=== PATIENT | male | born 1950 | race Caucasian/White ===

== ENCOUNTER 2020-01-06 09:51 | Inpatient (IN) | payer MEDICARE ==
[2020-01-06] MEDS ORDERED: NITROGLYCERIN OINT 1 INCH/GM PACKET TOPICAL STA (10:09)
[2020-01-06] MEDS ORDERED: ASPIRIN 81 MG PO STA (10:09)
--- NOTE | 2020-01-06 10:20 | ED ---
General Adult HPI - General Chief complaint: Chest Pain Stated complaint: chest pain Time Seen by Provider: 01/06/20 09:55 Source: patient, family, RN notes reviewed, old records reviewed Mode of arrival: wheelchair Limitations: no limitations - History of Present Illness Initial comments: This is a 69-year-old male who presents emergency Department complaining of chest pain. Patient states he has diabetes hypertension high cholesterol and just quit smoking at the beginning of the month. Patient states he started having chest pain on Monday it lasted almost the whole night through Monday morning and then it subsided. Patient states that again started this morning at 9:00. Patient states he short of breath feels sweaty but denies any radiation of the pain and denies any nausea. Patient denies any recent fever chills or cough. Patient denies abdominal pain patient denies any vomiting or diarrhea per patient denies any back pain. Patient denies any lightheadedness or dizziness. Patient denies headache patient denies numbness weakness. - Related Data Allergies Allergy/AdvReac Type Severity Reaction Status Date / Time Penicillins Allergy Swelling Verified 01/06/20 09:58 Review of Systems ROS Statement: Those systems with pertinent positive or pertinent negative responses have been documented in the HPI. ROS Other: All systems not noted in ROS Statement are negative. Past Medical History Past Medical History: Coronary Artery Disease (CAD), Diabetes Mellitus Past Surgical History: Heart Catheterization With Stent Smoking Status: Current every day smoker Past Alcohol Use History: None Reported Past Drug Use History: None Reported General Exam - General Exam Comments Initial Comments: GENERAL: Patient is well-developed and well-nourished. Patient is nontoxic and well- hydrated and is in mild distress. ENT: Neck is soft and supple. No significant lymphadenopathy is noted. Oropharynx is clear. Moist mucous membranes. Neck has full range of motion without eliciting any pain. EYES: The sclera were anicteric and conjunctiva were pink and moist. Extraocular movements were intact and pupils were equal round and reactive to light. Eyelids were unremarkable. PULMONARY: Unlabored respirations. Patient has crackles in both bases. CARDIOVASCULAR: There is a regular rate and rhythm without any murmurs gallops or rubs. ABDOMEN: Soft and nontender with normal bowel sounds. Patient is morbidly obese SKIN: Skin is clear with no lesions or rashes and otherwise unremarkable. NEUROLOGIC: Patient is alert and oriented x3. Cranial nerves II through XII are grossly intact. Motor and sensory are also intact. Normal speech, volume and content. Symmetrical smile. MUSCULOSKELETAL: Normal extremities with adequate strength and full range of motion. No lower extremity swelling or edema. No calf tenderness. LYMPHATICS: No significant lymphadenopathy is noted PSYCHIATRIC: Normal psychiatric evaluation. Limitations: no limitations Course Vital Signs 01/06/20 01/06/20 01/06/20 09:52 10:26 10:27 Temperature 94.5 F L 97.7 F Pulse Rate 53 L 50 L Respiratory 20 18 Rate Blood Pressure 172/80 152/74 O2 Sat by Pulse 96 97 Oximetry 01/06/20 01/06/20 10:31 10:36 Temperature Pulse Rate 56 L 56 L Respiratory 18 18 Rate Blood Pressure 142/78 109/78 O2 Sat by Pulse 98 97 Oximetry Medical Decision Making - Medical Decision Making EKG shows sinus bradycardia 56 bpm DE interval is 174 QRS is 96 QT interval 420 QTC is 413. Patient's EKG shows no ST segment elevation or depression. Chest x-ray shows no acute abnormality. I started the patient on heparin for the unstable angina. I spoke with Dr. Briceno he agreed to come see the patient. I spoke with some physicians admitted the patient wrote admitting orders I wrote to continue heparin and aspirin Nitropaste. - Lab Data Result diagrams: 01/06/20 10:21 01/06/20 10:21 Lab Results 01/06/20 01/06/20 01/06/20 Range/Units 10:21 10:21 10:21 WBC 9.9 (3.8-10.6) k/uL RBC 5.98 H (4.30-5.90) m/uL Hgb 18.0 H (13.0-17.5) gm/dL Hct 53.6 H (39.0-53.0) % MCV 89.6 (80.0-100.0) fL MCH 30.1 (25.0-35.0) pg MCHC 33.6 (31.0-37.0) g/dL RDW 12.9 (11.5-15.5) % Plt Count 215 (150-450) k/uL Neutrophils % 63 % Lymphocytes % 24 % Monocytes % 7 % Eosinophils % 3 % Basophils % 1 % Neutrophils # 6.2 (1.3-7.7) k/uL Lymphocytes # 2.3 (1.0-4.8) k/uL Monocytes # 0.7 (0-1.0) k/uL Eosinophils # 0.3 (0-0.7) k/uL Basophils # 0.1 (0-0.2) k/uL PT 10.2 (9.0-12.0) sec INR 1.0 (<1.2) APTT 18.4 L (22.0-30.0) sec Sodium 135 L (137-145) mmol/L Potassium 4.6 (3.5-5.1) mmol/L Chloride 100 (98-107) mmol/L Carbon Dioxide 18 L (22-30) mmol/L Anion Gap 17 mmol/L BUN 26 H (9-20) mg/dL Creatinine 1.32 H (0.66-1.25) mg/dL Est GFR (CKD-EPI)AfAm 63 (>60 ml/min/1.73 sqM) Est GFR (CKD-EPI)NonAf 55 (>60 ml/min/1.73 sqM) Glucose 282 H (74-99) mg/dL Calcium 9.1 (8.4-10.2) mg/dL Magnesium 1.8 (1.6-2.3) mg/dL Total Bilirubin 1.2 (0.2-1.3) mg/dL AST 44 (17-59) U/L ALT 36 (4-49) U/L Alkaline Phosphatase 62 (38-126) U/L Troponin I (0.000-0.034) ng/mL NT-Pro-B Natriuret Pep pg/mL Total Protein 7.8 (6.3-8.2) g/dL Albumin 4.4 (3.5-5.0) g/dL 01/06/20 01/06/20 Range/Units 10:21 10:21 WBC (3.8-10.6) k/uL RBC (4.30-5.90) m/uL Hgb (13.0-17.5) gm/dL Hct (39.0-53.0) % MCV (80.0-100.0) fL MCH (25.0-35.0) pg MCHC (31.0-37.0) g/dL RDW (11.5-15.5) % Plt Count (150-450) k/uL Neutrophils % % Lymphocytes % % Monocytes % % Eosinophils % % Basophils % % Neutrophils # (1.3-7.7) k/uL Lymphocytes # (1.0-4.8) k/uL Monocytes # (0-1.0) k/uL Eosinophils # (0-0.7) k/uL Basophils # (0-0.2) k/uL PT (9.0-12.0) sec INR (<1.2) APTT (22.0-30.0) sec Sodium (137-145) mmol/L Potassium (3.5-5.1) mmol/L Chloride (98-107) mmol/L Carbon Dioxide (22-30) mmol/L Anion Gap mmol/L BUN (9-20) mg/dL Creatinine (0.66-1.25) mg/dL Est GFR (CKD-EPI)AfAm (>60 ml/min/1.73 sqM) Est GFR (CKD-EPI)NonAf (>60 ml/min/1.73 sqM) Glucose (74-99) mg/dL Calcium (8.4-10.2) mg/dL Magnesium (1.6-2.3) mg/dL Total Bilirubin (0.2-1.3) mg/dL AST (17-59) U/L ALT (4-49) U/L Alkaline Phosphatase (38-126) U/L Troponin I 3.210 H* (0.000-0.034) ng/mL NT-Pro-B Natriuret Pep 200 pg/mL Total Protein (6.3-8.2) g/dL Albumin (3.5-5.0) g/dL Critical Care Time Critical Care Time: Yes Total Critical Care Time: 35 Disposition Clinical Impression: Non-STEMI (non-ST elevated myocardial infarction) Disposition: ADMITTED IP TO THIS HOSP Referrals: Nonstaff,Physician [Primary Care Provider] - 1-2 days Time of Disposition: 11:21
[2020-01-06] MEDS: NITROGLYCERIN SL TABS 0.4 MG TAB SUBLINGUAL STA ×3 (10:26→10:36)
[2020-01-06 10:32] LABS: Basophils # (A) 0.1 k/uL (0-0.2); Basophils % (A) 1 %; Eosinophils # (A) 0.3 k/uL (0-0.7); Eosinophils % (A) 3 %; HCT 53.6 % (39.0-53.0); Lymphocytes # (A) 2.3 k/uL (1.0-4.8); Lymphocytes % (A) 24 %; MCH 30.1 pg (25.0-35.0); MCHC 33.6 g/dL (31.0-37.0); MCV 89.6 fL (80.0-100.0); Mean Platelet Volume 7.5; Monocytes # (A) 0.7 k/uL (0-1.0); Monocytes % (A) 7 %; Neutrophils # (A) 6.2 k/uL (1.3-7.7); Neutrophils % (A) 63 %; Platelet Count 215 k/uL (150-450); RBC 5.98 m/uL (4.30-5.90); RDW 12.9 % (11.5-15.5); WBC 9.9 k/uL (3.8-10.6)
[2020-01-06] MEDS ORDERED: NITROGLYCERIN-D5W PMX 50 MG in DEXTROSE/WATER 1 250ML.BAG IV ONE (10:43)
[2020-01-06 10:49] LABS: Albumin 4.4 g/dL (3.5-5.0); Calcium 9.1 mg/dL (8.4-10.2); Total Bilirubin 1.2 mg/dL (0.2-1.3); Total Protein 7.8 g/dL (6.3-8.2)
--- NOTE | 2020-01-06 10:52 | XR ---
EXAMINATION TYPE: XR chest 2V DATE OF EXAM: 01/06/2020 COMPARISON: NONE HISTORY: Shortness of breath TECHNIQUE: Frontal and lateral views of the chest are obtained. FINDINGS: Scattered senescent parenchymal changes noted. Hyperinflation compatible with COPD. Increased basilar markings may reflect atelectasis however underlying infiltrates not excluded. Corre late clinically. Heart size is stable. Mediastinal structures are stable and grossly unremarkable. No evidence for hilar prominence. Degenerative changes dorsal spine. IMPRESSION: 1. Increased basilar markings may reflect atelectasis however underlying infiltrates not excluded. Co rrelate clinically.
[2020-01-06 11:00] LABS: Magnesium 1.8 mg/dL (1.6-2.3); Potassium 4.6 mmol/L (3.5-5.1)
[2020-01-06 11:11] LABS: Prothrombin Time 10.2 sec (9.0-12.0)
[2020-01-06 11:14] LABS: Partial Thromboplastin Time 18.4 sec (22.0-30.0)
[2020-01-06] MEDS ORDERED: HEPARIN SODIUM,PORCINE 5,000 UNIT/ML 1 ML VIAL IV ONE (11:19)
[2020-01-06] MEDS ORDERED: NITROGLYCERIN SL TABS 0.4 MG TAB SUBLINGUAL PRN ×3 (11:22→14:12)
[2020-01-06] MEDS ORDERED: HEPARIN SOD,PORK IN 0.45% NACL 25,000 UNIT in 0.45% NACL 1 250ML.BAG IV SCH (11:30)
[2020-01-06] MEDS ORDERED: ALPRAZolam 0.25 MG TAB PO PRN (11:46)
[2020-01-06] MEDS ORDERED: ATORVASTATIN 80 MG TAB PO STA (11:46)
[2020-01-06] MEDS ORDERED: ALPRAZolam 0.5 MG TAB PO PRN (11:46)
[2020-01-06] MEDS ORDERED: ASPIRIN 325 MG TAB PO STA (11:46)
--- NOTE | 2020-01-06 12:01 | CONS ---
CONSULTATION Mr. Mabry is a 69-year-old male with known history of coronary artery disease, status post percutaneous revascularization in 2002, history of hypertension, prior history of smoking, who has just stop smoking, who presented with symptoms of chest pain. His symptoms started on Monday, lasted for about 5 hours, then on Monday and Monday he felt well. This morning, he had pain again and came into the emergency room. He continues to have pain radiating to the arms. He has some diaphoresis, some nausea and dyspnea. He denies any palpitation or syncope. He has been smoking on a regular basis up until recently. He has a history of diabetes, hypertension, hyperlipidemia. REVIEW OF SYSTEMS: RESPIRATORY SYSTEM: He had dyspnea on exertion. He has no recent fever. He has mild cough. GI SYSTEM: No recent GI bleed. No peptic ulcer disease. SYSTEM: No dysuria or hematuria. NERVOUS SYSTEM: No history of stroke or seizure. PHYSICAL EXAMINATION: A 69-year-old male, alert, oriented, in no apparent distress. Blood pressure 109/70 with a heart rate in the 60s. LUNGS: Clear. HEAD: Normocephalic. EYES" sclerae nonicteric. NECK: Good upstroke, no bruit, no venous distention. LUNGS: Clear to auscultation. HEART: Regular rate and rhythm, S1, S2. No S3 with systolic murmur at the base. No diastolic murmur, no rub. ABDOMEN: Soft, obese, nontender. EXTREMITIES: No edema. LAB DATA: Revealed a troponin of 3.2, BUN and creatinine 26 and 1.32. Hemoglobin of 18. Chest x-ray revealed increased basilar markings that could represent atelectasis. EKG reveals sinus bradycardia with left axis deviation and minimal ST-segment changes noted anteriorly. IMPRESSION: 1. Evidence of non ST-segment elevation myocardial infarction. Patient's symptoms started on Monday with reoccurrence today. 2. History of coronary artery disease status post stenting in the past. 3. Prior history of smoking. 4. Hypertension. 5. Hyperlipidemia. 6. Diabetes mellitus. 7. Chronic tobacco use. RECOMMENDATION: In view of the finding anatomy, I recommend proceeding with coronary angiography to assess his status and guide his treatment. The rationale behind the procedures, risks, and complication were discussed with the patient who is in full understanding and agreement. Thank you for this consult. Will follow with you. MMODL / IJN: [id number] /
[2020-01-06] MEDS ORDERED: IV FLUID CONTINUATION 1,000 ML IV ONE (12:20)
[2020-01-06] MEDS ORDERED: HEPARIN SODIUM 1,000 UN/ML (10ML VL) ONE (12:20)
[2020-01-06] MEDS ORDERED: fentaNYL (PF) 50 MCG/ML 2 ML AMP ONE (12:20)
[2020-01-06] MEDS ORDERED: VERAPAMIL 2.5 MG/ML 2 ML AMP ONE (12:20)
[2020-01-06] MEDS ORDERED: LIDOCAINE 1% INJ 10MG/ML (20 ML MDV) ONE (12:20)
[2020-01-06] MEDS ORDERED: MIDAZOLAM 2 MG/2 ML VIAL IV ONE (12:30)
[2020-01-06] MEDS ORDERED: fentaNYL (PF) 50 MCG/ML 2 ML AMP IV ONE (12:32)
[2020-01-06] MEDS ORDERED: LIDOCAINE 1% INJ 10MG/ML (20 ML MDV) SQ ONE (12:33)
[2020-01-06] MEDS ORDERED: VERAPAMIL SYRINGE (5 MG/10 ML) INTRAARTER ONE (12:35)
[2020-01-06] MEDS ORDERED: CLOPIDOGREL 75 MG TAB ONE (12:46)
[2020-01-06] MEDS ORDERED: CLOPIDOGREL 75 MG TAB PO ONE (12:48)
[2020-01-06] MEDS ORDERED: BIVALIRUDIN BOLUS 250 MG/50 ML IV ONE (12:48)
[2020-01-06] MEDS ORDERED: BIVALIRUDIN 250 MG in SODIUM CHLORIDE 0.9% 50 ML IV ONE ×2 (12:49→13:17)
[2020-01-06] MEDS ORDERED: IOPAMIDOL-370 125ML BTL INJ ONE (13:17)
[2020-01-06] MEDS ORDERED: IOPAMIDOL-370 100ML BTL INJ ONE (13:57)
[2020-01-06] MEDS ORDERED: RX INFO: IV CONTRAST WAS GIVEN 1 EACH MISC MISCELLANE PRN (14:12)
[2020-01-06] MEDS ORDERED: ATROPINE SULFATE 0.1 MG/ML 10ML SYRINGE IV PRN (14:12)
[2020-01-06] MEDS ORDERED: ZOLPIDEM 5 MG TAB PO PRN (14:12)
[2020-01-06] MEDS ORDERED: MAG HYDROX/AL HYDROX/SIMETH 30 ML CUP PO PRN (14:12)
[2020-01-06] MEDS ORDERED: SODIUM CHLORIDE 0.9% 1,000 ML IV SCH (14:15)
[2020-01-06 15:04] VITALS: BMI 43.4
--- NOTE | 2020-01-06 15:43 | PTCA ---
PERCUTANEOUSTRANS CORORONARY ANGIOGRAPHY Mr. Mabry is a 69-year-old male with known history of hypertension, hyperlipidemia, and diabetes mellitus who presented with non ST-segment elevation myocardial infarction, underwent cardiac catheterization, was found to have a total occlusion of the LAD at the site of the prior stenting that appears to be chronic occlusion as well as critical stenosis in the obtuse marginal branch. In view of that, recommendation regarding angioplasty and stenting, the procedures, risks, and complications were discussed with the patient who is in full understanding and agreement. PROCEDURE: A 6-Khmer LBU 3.75 guiding catheter introduced into the system after cannulating the left main, a 0.014 Whisper J-wire were balanced medium weight J-wire with the Super cross straight catheter were advanced. Multiple attempts to cross the total occlusion of the LAD were unsuccessful. That wire was exchanged to a Whisper J-wire, that was unsuccessful as well. That wire was removed and a Fielder XT was advanced that was unsuccessful as well as a run-through. In view of that and because of the appearance of chronic total occlusion, the run-through wire was introduced in the obtuse marginal branch, subsequently a 2.0 x 12 mm Trek mini trek balloon was advanced and two inflations at 10 atmospheres were done. Following that, the balloon was removed and attempt to advance a 2.25 x 12 mm Xience stent were unsuccessful. Because of the tortuosity and icteric proximal vessel, that stent and the wire were removed and a 0.014 balanced medium weight J-wire was advanced distally as well as a Whisper J-wire in spite of the double wiring of the vessel and using a 2.0 x 12 mm Byron Resolute stent were inability to advance the stent in the proximal segment. At that time, the stent was removed and a 2.25 x 12 mm mini trek Chris balloon was advanced and multiple inflations at 10 atmospheres were done. After the last inflation, after appropriate wait, the balloon and the guidewire were withdrawn back in the guiding catheter. Images were obtained and repeated. Those images reveal stable successful angioplasty at that time. The guiding catheter, the balloon and the guidewire removed. The sheath was removed, hemostasis was obtained with deployment of a TR band. There was no immediate complication. Patient is returned to his room in stable condition. Of note, the patient symptoms of chest discomfort improved at the end of the procedure. He received Angiomax per protocol as well as oral loading dose of clopidogrel. RESULTS: Successful angioplasty of the obtuse marginal branch with reduction of stenosis from 99% to less than 10%. RECOMMENDATION: Patient will be continued on aspirin, Plavix, beta park, KATIUSKA inhibitor, statin. The importance of dual antiplatelet treatment were discussed with the patient his family and they are in full understanding and agreement. Duration of procedure is 88 minutes. MMPHU / JUSTINON: [id number] / JAYNE
--- NOTE | 2020-01-06 15:48 | CC ---
CARDIAC CATHETERIZATION REPORT Mr. Mabry is a 69-year-old male with known history of hypertension, hyperlipidemia, diabetes mellitus, prior history of coronary artery disease and a history of smoking who underwent angioplasty and stenting of acutely occluded LAD in 2002. He presented to the emergency room with an episode of chest discomfort that started on Monday and lasted for few hours then subsequently resolved. He had another episode today and came into the emergency room. On presentation, his troponins were up to 3, but he had no EKG changes. In view of those findings, recommendation was made regarding cardiac catheterization. The procedures, its risks and complications were discussed with the patient, who was in full understanding and agreement. 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 Using Xylocaine anesthesia and Seldinger technique, a 6-Indonesian sheath was introduced in the right radial artery. Selective right and left coronary angiography was performed using 5-Indonesian 3-1/2 bent, right and left Radha catheters. Multiple views were taken of the arteries, coronary artery including hemiaxial views. Following that, images were reviewed. FINDINGS: LEFT MAIN: This is a large-sized vessel bifurcating into left circumflex and left anterior descending artery. Left main coronary artery has no evidence of high-grade stenosis. LEFT ANTERIOR DESCENDING ARTERY: This vessel gives rise to a diagonal branch and septal casework supervisor, and right after that it is totally occluded, with no antegrade flow. The stented segment in mid vessel has no antegrade flow in it. LEFT CIRCUMFLEX: This is a nondominant vessel, large in caliber, giving rise to 2 obtuse marginal branches. The left circumflex proximally is quite tortuous and has an ectatic segment. The inferior branch of the first obtuse marginal branch has a 99% stenosis. The rest of the vessel has no high-grade stenosis. RIGHT CORONARY ARTERY: This is a large dominant vessel bifurcating distally into PDA and posterolateral segment and branches. The right coronary artery is diffusely diseased throughout its course, calcified. Proximally it has a 40% to 50% plaque and in the mid segment another 50% plaque and diffuse intimal disease distally. COLLATERALS: There are small collaterals noted from the right PDA toward the distal LAD. LEFT VENTRICULOGRAM: Left ventriculogram was not performed. HEMODYNAMICS: Left ventricular end-diastolic pressure was not measured. RESULTS: 1. Critical stenosis in the obtuse marginal branch. 2. Chronically occluded mid LAD at the site of the prior stenting. 3. Moderate disease in the right coronary artery in an ectatic calcified vessel. RECOMMENDATIONS: In view of findings and anatomy, I would recommend to attempt angioplasty and stenting to see if the LAD can be re-canalized; otherwise, attempt to do angioplasty and stenting of the obtuse marginal branch. The procedures as well as their risks and complication were discussed with the patient, who is in full understanding and agreement. MMODL / IJN: [id number] /
[2020-01-06] MEDS: NITROGLYCERIN OINT 1 INCH/GM PACKET TOPICAL SCH (16:46)
[2020-01-06 16:49] LABS: Glucose,Whole Blood 221 mg/dL (75-99)
[2020-01-06] MEDS: EZETIMIBE 10 MG TAB PO SCH (17:13)
[2020-01-06 17:18] LABS: Cholesterol 146 mg/dL (<200); HDL Cholesterol 37 mg/dL (40-60); LDL Cholesterol,Calculated 66 mg/dL (0-99); Triglycerides 214 mg/dL (<150)
[2020-01-06] MEDS ORDERED: HYDROcodone/APAP 5-325MG 1 EACH TAB PO PRN (17:51)
[2020-01-06] MEDS ORDERED: ACETAMINOPHEN TAB 325 MG TAB PO PRN (17:51)
[2020-01-06] MEDS ORDERED: NALOXONE 0.4 MG/ML 1 ML VIAL IV PRN (17:51)
--- NOTE | 2020-01-06 17:54 | P.HPIM ---
History of Present Illness H&P Date: 01/06/20 Chief Complaint: Chest pain 69-year-old male with PMH of type 2 diabetes mellitus, CAD post 2 stents, recently quit smoking after 50 years pack a day presents the ED for chest pain. Patient reports that this morning he was sitting drinking a couple coffee when he experienced a sudden onset of chest pain. Pain was described as squeezing in nature and was 10 out of 10. Patient reports the pain radiated to his bilateral arms and the right side of his jaw. He also felt cold and clammy during that time along with a dry cough. These symptoms reminded him of his prior AL which prompted him to come to the ED. He denies any headache, lower extremity edema, nausea or vomiting, fever or chills, shortness of breath, palpitations, changes in urination or bowel habits. No changes in appetite or weight. In the ED, his vital signs were relatively stable except for bradycardia with heart rate of 53. CBC showed hemoglobin of 18. Coagulation panel showed PTT of 18.4. CMP showed sodium of 135, bicarbonate of 18, BUN 26, creatinine 1.32, glucose 282. Troponin was 3.21, EKG showing sinus bradycardia with T-wave inversions. BNP was 200, chest x-ray showing basilar markings. Patient was taken to the [facility] from the ED which showed critical stenosis of the obtuse marginal branch, chronically occluded mid LAD at the site of prior stenting, moderate disease of the RCA. Patient underwent successful angioplasty of the obtuse marginal branch with reduction of stenosis from 99% to less than 10%. Patient is admitted for chest pain, non-ST elevation AL and cardiology consultation. Review of Systems Pertinent positives and negatives as discussed in HPI, a complete review of systems was performed and all other systems are negative. Past Medical History Past Medical History: Coronary Artery Disease (CAD), Diabetes Mellitus History of Any Multi-Drug Resistant Organisms: None Reported Past Surgical History: Heart Catheterization With Stent Past Anesthesia/Blood Transfusion Reactions: No Reported Reaction Date of Last Stent Placement:: 2002 Smoking Status: Former smoker Past Alcohol Use History: None Reported Past Drug Use History: None Reported - Past Family History Father Family Medical History: Myocardial Infarction (AL) Medications and Allergies Allergies Allergy/AdvReac Type Severity Reaction Status Date / Time Penicillins Allergy Swelling Verified 01/06/20 16:54 Physical Exam Vitals: Vital Signs Temp Pulse Pulse Resp BP BP Pulse Ox 01/06/20 16:10 53 L 16 129/76 98 01/06/20 15:40 48 L 16 177/86 98 01/06/20 15:10 58 L 16 167/79 98 01/06/20 14:55 55 L 167/87 01/06/20 14:40 54 L 16 141/79 99 01/06/20 14:25 48 L 18 143/72 96 01/06/20 10:36 56 L 18 109/78 97 01/06/20 10:31 56 L 18 142/78 98 01/06/20 10:27 50 L 18 152/74 97 01/06/20 10:26 97.7 F 01/06/20 09:52 94.5 F L 53 L 20 172/80 96 Intake and Output 01/06/20 01/06/20 01/06/20 06:59 14:59 22:59 Intake Total 192 Balance 192 Intake: IV 192 Other: Weight 145.15 kg 145.15 kg General: [non toxic], [no distress], [appears at stated age] Derm: [warm], [dry] Head: [atraumatic], [normocephalic], [symmetric] Eyes: [EOMI], [no lid lag], [anicteric sclera] Mouth: [no lip lesion], [mucus membranes moist] Cardiovascular: [S1S2 reg], [no murmur], [positive DP pulse bilateral], Lungs: [CTA bilateral], [no rhonchi, no rales] , [no accessory muscle use] Abdominal: [soft], [ nontender to palpation], [no guarding], [no appreciable organomegaly] Ext: [no gross muscle atrophy], [no edema], [no contractures] Neuro: [ CN II-XI grossly intact], [no focal neuro deficits] Psych: [Alert], [oriented], [appropriate affect] Results CBC & Chem 7: 01/06/20 10:21 01/06/20 10:21 Labs: Abnormal Lab Results - Last 24 Hours (Table) 01/06/20 01/06/20 01/06/20 Range/Units 10:21 10:21 10:21 RBC 5.98 H (4.30-5.90) m/uL Hgb 18.0 H (13.0-17.5) gm/dL Hct 53.6 H (39.0-53.0) % APTT 18.4 L (22.0-30.0) sec Sodium 135 L (137-145) mmol/L Carbon Dioxide 18 L (22-30) mmol/L BUN 26 H (9-20) mg/dL Creatinine 1.32 H (0.66-1.25) mg/dL Glucose 282 H (74-99) mg/dL POC Glucose (mg/dL) (75-99) mg/dL Troponin I (0.000-0.034) ng/mL 01/06/20 01/06/20 Range/Units 10:21 16:48 RBC (4.30-5.90) m/uL Hgb (13.0-17.5) gm/dL Hct (39.0-53.0) % APTT (22.0-30.0) sec Sodium (137-145) mmol/L Carbon Dioxide (22-30) mmol/L BUN (9-20) mg/dL Creatinine (0.66-1.25) mg/dL Glucose (74-99) mg/dL POC Glucose (mg/dL) 221 H (75-99) mg/dL Troponin I 3.210 H* (0.000-0.034) ng/mL Thrombosis Risk Factor Assmnt - Choose All That Apply Each Factor Represents 1 point: Acute AL Each Risk Factor Represents 2 Points: Age 61-74 years Thrombosis Risk Factor Assessment Total Risk Factor Score: 3 Thrombosis Risk Factor Assessment Level: Moderate Risk Assessment and Plan Assessment: Non-ST elevation AL with history of CAD Acute kidney injury Diabetes mellitus with hyperglycemia Dyslipidemia Initial troponin of 3.210 with EKG showing sinus bradycardia with T-wave inversions, concerning for ACS. Patient underwent successful stenting of the obtuse marginal branch. Plans: Telemetry monitoring. Continue aspirin. Continue Lipitor. Continue Plavix. Continue metoprolol. Follow cardiology consultation. Creatinine 1.32. Unknown baseline. Likely to elevate due to contrast. Plans: Repeat BMP tomorrow morning. Avoid nephrotoxins. Continue normal saline at 100 mL per hour. [id number] glucose 221. On oral hypoglycemics at home. Plans: Insulin sliding so. Regular Accu-Cheks. Hypoglycemic precautions. Lipid panel shows triglyceride of 214 and low HDL of 37. Plans: Continue Lipit or. Start Zetia. DVT prophylaxis: [Heparin subcutaneous] Discussed with: [Patient] Anticipated discharge: [1-2 days] Anticipated discharge place: [Home] A total of [45] minutes was spent on the care of this complex patient more than 50% of the time was spent in counseling and care coordination. Patient names his girlfriend Lynda decision maker if he can't make decisions for himself. Patient will like to be full code.
[2020-01-06 20:54] LABS: Glucose,Whole Blood 232 mg/dL (75-99)
[2020-01-06] MEDS: LISINOPRIL 5 MG TAB PO SCH (21:03)
[2020-01-06] MEDS: METOPROLOL TARTRATE 25 MG TAB PO SCH (21:03)
[2020-01-06] MEDS: INSULIN ASPART (NovoLOG) 100 UNIT/ML VIAL SQ SCH (21:05)
[2020-01-06] MEDS: HEPARIN SODIUM,PORCINE 5,000 UNIT/ML 1 ML VIAL SQ SCH (21:05)
[2020-01-07] MEDS: NITROGLYCERIN OINT 1 INCH/GM PACKET TOPICAL SCH ×2 (00:35→06:23)
[2020-01-07 02:15] LABS: Glucose,Whole Blood 205 mg/dL (75-99)
[2020-01-07 06:08] LABS: Glucose,Whole Blood 190 mg/dL (75-99)
[2020-01-07] MEDS: INSULIN ASPART (NovoLOG) 100 UNIT/ML VIAL SQ SCH ×4 (06:25→21:09)
[2020-01-07 06:37] LABS: Calcium 9.1 mg/dL (8.4-10.2); Potassium 5.4 mmol/L (3.5-5.1)
[2020-01-07] MEDS ORDERED: INSULIN ASPART (NovoLOG) 100 UNIT/ML VIAL SQ SCH (07:30)
--- NOTE | 2020-01-07 08:23 | ECHOF ---
Referral Reason:cad MEASUREMENTS -------- HEIGHT: 182.9 cm WEIGHT: 149.7 kg BP: 141/79 RVIDd: 3.2 cm (< 3.3) IVSd: 1.6 cm (0.6 - 1.1) LVIDd: 3.7 cm (3.9 - 5.3) LVPWd: 1.4 cm (0.6 - 1.1) IVSs: 1.8 cm LVIDs: 3.0 cm LVPWs: 1.7 cm LAESV Index (A-L): 18.06 ml/m Ao Diam: 2.7 cm (2.0 - 3.7) AV Cusp: 1.8 cm (1.5 - 2.6) MV EXCURSION: 14.447 mm (> 18.000) MV EF SLOPE: 155 mm/s (70 - 150) EPSS: 0.9 cm MV E Mike: 0.69 m/s MV DecT: 171 ms MV A Mike: 0.93 m/s MV E/A Ratio: 0.75 RAP: 5.00 mmHg RVSP: 15.17 mmHg FINDINGS -------- Sinus rhythm. This was a technically difficult study with suboptimal views. There is moderate concentric left ventricular hypertrophy. Overall left ventricular systolic functi on is severely impaired with, an EF between 30 -. Mitral Doppler inflow pattern suggests diastolic f illing abnormality {E/E'}. Watson Hypokinesis. The right ventricle is normal in size. Normal LA size by volume 22+/-6 ml/m2. The right atrium was not well visualized. 5.0mg of Lumason was utilized for enhancement of images Interatrial and interventricular septum intact. The aortic valve was not well visualized. There is no evidence of aortic regurgitation. There is no evidence of aortic stenosis. The mitral valve was not well visualized. There is trace mitral regurgitation. The tricuspid valve was not well visualized. Mild tricuspid regurgitation present. There is no ev idence of pulmonary hypertension. The right ventricular systolic pressure, as measured by Doppler, is 15.17mmHg. There is no pulmonic regurgitation present. The mass is located in the apical portion of the left ventricle. The aortic root size is normal. IVC Not well visulized. There is no pericardial effusion. CONCLUSIONS -------- 1. Sinus rhythm. 2. This was a technically difficult study with suboptimal views. 3. There is moderate concentric left ventricular hypertrophy. 4. Overall left ventricular systolic function is-severely impaired with, an EF between 30 . 5. Mitral Doppler inflow pattern suggest diastolic filling abnormality {E/E'}. 6. Watson Hypokinesis. 7. The right ventricle is normal in size. 8. Normal LA size by volume 22+/-6 ml/m2. 9. The right atrium was not well visualized. 10. 5.0mg of Lumason was utilized for enhancement of images 11. Interatrial and interventricular septum intact. 12. The aortic valve was not well visualized. 13. There is no evidence of aortic regurgitation. 14. There is no evidence of aortic stenosis. 15. The mitral valve was not well visualized. 16. There is trace mitral regurgitation. 17. The tricuspid valve was not well visualized. 18. Mild tricuspid regurgitation present. 19. There is no evidence of pulmonary hypertension. 20. The right ventricular systolic pressure, as measured by Doppler, is 15.17mmHg. 21. There is no pulmonic regurgitation present. 22. The mass is located in the apical portion of the left ventricle. 23. The aortic root size is normal. 24. IVC Not well visulized. FARM PL[employer]NER: Kathi Escobedo RDCS
[2020-01-07] MEDS ORDERED: ASPIRIN 325 MG TAB PO SCH (09:00)
[2020-01-07] MEDS ORDERED: ATORVASTATIN 40 MG TAB PO SCH (09:00)
[2020-01-07] MEDS: CLOPIDOGREL 75 MG TAB PO SCH (09:34)
[2020-01-07] MEDS: EZETIMIBE 10 MG TAB PO SCH (09:34)
[2020-01-07] MEDS: ISOSORBIDE MONONITRATE ER 30 MG TAB.ER.24H PO SCH (09:34)
[2020-01-07] MEDS: HEPARIN SODIUM,PORCINE 5,000 UNIT/ML 1 ML VIAL SQ SCH ×2 (09:34→21:07)
[2020-01-07] MEDS: ATORVASTATIN 80 MG TAB PO SCH (09:34)
[2020-01-07] MEDS: LISINOPRIL 5 MG TAB PO SCH ×2 (09:34→21:07)
[2020-01-07] MEDS: METOPROLOL TARTRATE 25 MG TAB PO SCH ×2 (09:34→21:07)
[2020-01-07] MEDS: ASPIRIN 81 MG PO SCH (09:34)
--- NOTE | 2020-01-07 09:53 | PN ---
PROGRESS NOTE Mr. Mabry is a 69-year-old male with known history of coronary artery disease, who presented with an acute non-STEMI, underwent cardiac catheterization. was found to have chronic total occlusion of the LAD with critical stenosis in the obtuse marginal branch. Attempt to recanalize the LAD were unsuccessful and underwent angioplasty of the obtuse marginal branch. She is feeling well this morning. He has no significant chest pain, his breathing has been stable. He denies any dizziness, palpitation. He denies any nausea. No cough. He continues to be on aspirin once a day, Lipitor 80 mg daily, Plavix 75 mg daily, lisinopril 5 mg twice a day, metoprolol tartrate 25 mg twice a day, nitroglycerin paste 1 inch q.6 hours. PHYSICAL EXAMINATION: Blood pressure running in the 130 to 150 with a heart rate in the 60s. LUNGS: Clear. HEART: Regular rate and rhythm, S1, S2. No S3 with systolic murmur, no diastolic murmur, no rub. ABDOMEN: Soft, obese, nontender. EXTREMITIES: No edema, right radial pulse intact. LAB DATA: Revealed BUN and creatinine 22 and 1.35. Potassium 5.4. Cholesterol 145, LDL of 74, peak troponin 54.8. EKG shows evidence of an anterior wall myocardial infarction with no acute evaluation. IMPRESSION: 1. Status post non ST-segment elevation myocardial infarction with chronically occluded LAD. 2. Status post angioplasty of the left circumflex. 3. Moderate disease in the right coronary artery. 4. History of smoking. 5. Hypertension. 6. Hyperlipidemia. 7. Diabetes mellitus. RECOMMENDATION: From the cardiac standpoint, I will switch him to oral nitrate. Continue to follow his renal function and blood pressure. Review the results of his echocardiogram. Increase his level activity and depending on his progress, further recommendation will be made. MMODL / IJN: [id number] /
[2020-01-07 11:31] LABS: Glucose,Whole Blood 292 mg/dL (75-99)
[2020-01-07] MEDS ORDERED: INSULIN REGULAR 100 UNIT/ML VIAL IV ONE (15:28)
[2020-01-07] MEDS ORDERED: DEXTROSE 50% SYRINGE 50 ML IVP STA (15:28)
--- NOTE | 2020-01-07 15:29 | P.PN ---
Subjective Progress Note Date: 01/07/20 Principal diagnosis: Non-ST elevation MD Patient was seen and examined. No acute events overnight. Patient reports mild chest pain but much improved since initial admission. He denies any shortness of breath or palpitations. No nausea or vomiting. No fever or chills. Objective - Vital Signs Vital signs: Vital Signs Temp 97.7 F 01/07/20 08:00 Pulse 72 01/07/20 08:00 Resp 18 01/07/20 08:00 BP 141/78 01/07/20 08:00 Pulse Ox 97 01/07/20 08:00 Intake & Output 01/06/20 01/07/20 01/07/20 18:59 06:59 18:59 Intake Total 372 600 480 Output Total 1240 300 Balance 372 -640 180 Weight 145.15 kg 150 kg Intake: IV 192 Intake, IV Titration 600 Amount Sodium Chloride 0.9% 1, 600 000 ml @ 100 mls/hr IV . Q10H MACIEJ Rx#:[id number] Oral 180 480 Output: Urine 1240 300 Other: Voiding Method Toilet Toilet Urinal Urinal # Voids 1 - Exam General: [non toxic], [no distress], [appears at stated age] Derm: [warm], [dry] Head: [atraumatic], [normocephalic], [symmetric] Eyes: [EOMI], [no lid lag], [anicteric sclera] Mouth: [no lip lesion], [mucus membranes moist] Cardiovascular: [S1S2 reg], [no murmur], [positive DP pulse bilateral], Lungs: [CTA bilateral], [no rhonchi, no rales] , [no accessory muscle use] Abdominal: [soft], [ nontender to palpation], [no guarding], [no appreciable organomegaly] Ext: [no gross muscle atrophy], [no edema], [no contractures] Neuro: [no focal neuro deficits] Psych: [Alert], [oriented], [appropriate affect] - Labs CBC & Chem 7: 01/06/20 10:21 01/07/20 06:09 Labs: Abnormal Lab Results - Last 24 Hours (Table) 01/06/20 01/06/20 01/06/20 Range/Units 16:48 16:49 16:49 Sodium (137-145) mmol/L Potassium (3.5-5.1) mmol/L BUN (9-20) mg/dL Creatinine (0.66-1.25) mg/dL Glucose (74-99) mg/dL POC Glucose (mg/dL) 221 H (75-99) mg/dL Troponin I 20.300 H* (0.000-0.034) ng/mL Triglycerides 214 H (<150) mg/dL HDL Cholesterol 37 L (40-60) mg/dL 01/06/20 01/06/20 01/07/20 Range/Units 20:52 22:22 02:13 Sodium (137-145) mmol/L Potassium (3.5-5.1) mmol/L BUN (9-20) mg/dL Creatinine (0.66-1.25) mg/dL Glucose (74-99) mg/dL POC Glucose (mg/dL) 232 H 205 H (75-99) mg/dL Troponin I 54.800 H* (0.000-0.034) ng/mL Triglycerides (<150) mg/dL HDL Cholesterol (40-60) mg/dL 01/07/20 01/07/20 01/07/20 Range/Units 06:07 06:09 11:26 Sodium 135 L (137-145) mmol/L Potassium 5.4 H (3.5-5.1) mmol/L BUN 22 H (9-20) mg/dL Creatinine 1.35 H (0.66-1.25) mg/dL Glucose 200 H (74-99) mg/dL POC Glucose (mg/dL) 190 H 292 H (75-99) mg/dL Troponin I (0.000-0.034) ng/mL Triglycerides 191 H (<150) mg/dL HDL Cholesterol 33 L (40-60) mg/dL Assessment and Plan Assessment: Non-ST elevation MD with history of CAD Hyperkalemia Acute kidney injury Diabetes mellitus with hyperglycemia Dyslipidemia Initial troponin of 3.210, 20.3, 54.8 with EKG showing sinus bradycardia with T- wave inversions, concerning for ACS. Patient underwent successful stenting of the obtuse marginal branch. Plans: Telemetry monitoring. Continue aspirin. Continue Lipitor. Continue Plavix. Continue metoprolol. Imdur added by Cardiology. Follow cardiology consultation. Potassium 5.4. Plans: Nonhemolyzed specimen. 10 units of insulin with D50. Repeat BMP tomorrow morning. Creatinine 1.35. Unknown baseline. Likely to elevate due to contrast. Plans: Repeat BMP tomorrow morning. Avoid nephrotoxins. [id number] glucose 292. On oral hypoglycemics at home. Plans: Insulin sliding scale. Regular Accu-Cheks. Hypoglycemic precautions. Lipid panel shows triglyceride of 214 and low HDL of 37. Plans: Continue Lipitor. Start Zetia. [Medications adjusted by cardiology. Continue monitoring. Likely DC in 1-2 days.]
[2020-01-07 16:15] LABS: Glucose,Whole Blood 248 mg/dL (75-99)
[2020-01-07 20:57] LABS: Glucose,Whole Blood 294 mg/dL (75-99)
[2020-01-07] MEDS: APIXABAN 5 MG TAB PO SCH (21:07)
[2020-01-08 05:58] LABS: Glucose,Whole Blood 190 mg/dL (75-99)
[2020-01-08 06:30] LABS: Calcium 8.7 mg/dL (8.4-10.2); Potassium 4.9 mmol/L (3.5-5.1)
[2020-01-08] MEDS: INSULIN ASPART (NovoLOG) 100 UNIT/ML VIAL SQ SCH ×3 (06:32→18:17)
[2020-01-08] MEDS: LISINOPRIL 5 MG TAB PO SCH ×2 (08:39→20:05)
[2020-01-08] MEDS: APIXABAN 5 MG TAB PO SCH ×2 (08:39→20:05)
[2020-01-08] MEDS: HEPARIN SODIUM,PORCINE 5,000 UNIT/ML 1 ML VIAL SQ SCH ×2 (08:39→20:05)
[2020-01-08] MEDS: METOPROLOL TARTRATE 25 MG TAB PO SCH ×2 (08:39→20:05)
[2020-01-08] MEDS: CLOPIDOGREL 75 MG TAB PO SCH (08:39)
[2020-01-08] MEDS: ISOSORBIDE MONONITRATE ER 30 MG TAB.ER.24H PO SCH (08:39)
[2020-01-08] MEDS: ATORVASTATIN 80 MG TAB PO SCH (08:39)
[2020-01-08] MEDS: ASPIRIN 81 MG PO SCH (08:39)
[2020-01-08] MEDS: EZETIMIBE 10 MG TAB PO SCH (08:39)
--- NOTE | 2020-01-08 10:19 | PN ---
PROGRESS NOTE Mr. Mabry is a 69-year-old male with history of coronary artery disease who presented with a myocardial infarction, was found to have chronic occluded right coronary artery with significant disease in the obtuse marginal branch, underwent angioplasty of the obtuse marginal branch. He is feeling well this morning. He is denying any chest pain. No dizziness. No palpitation. No nausea. His echocardiogram revealed ejection fraction of 30% to 35% with apical thrombus and akinesis of the apex. He has been ambulating without difficulty. He continued to be on aspirin once a day, Lipitor 80 mg daily, Plavix 75 mg daily, Zetia 10 mg daily, isosorbide mononitrate 30 mg daily, lisinopril 5 mg twice a day, metoprolol tartrate 25 mg twice a day, and was started yesterday on Eliquis 5 mg twice a day. PHYSICAL EXAMINATION: Blood pressure 109/60 with a heart rate in the 60s. LUNGS: Clear. HEART: Regular rate and rhythm, S1, S2. No S3. No rub. ABDOMEN: Soft, nontender, obese. EXTREMITIES: No edema. IMPRESSION: 1. Status post myocardial infarction with angioplasty of the obtuse marginal branch. 2. Chronic occluded left anterior descending artery. 3. Ischemic cardiomyopathy with apical thrombus. 4. Hypertension. 5. Hyperlipidemia. 6. Diabetes mellitus. 7. Apical thrombus. RECOMMENDATION: I will continue present therapy, follow his renal function. If he is doing well tomorrow, I would expect he should be able to be discharged home. MMMUL / JUSTINON: [id number] /
[2020-01-08 11:56] LABS: Glucose,Whole Blood 226 mg/dL (75-99)
--- NOTE | 2020-01-08 14:04 | P.PN ---
Subjective Progress Note Date: 01/08/20 Principal diagnosis: Non-ST elevation LA Patient was seen and examined. No acute events overnight. Patient reports no symptoms today. He denies any chest pain, shortness of breath or palpitations. No nausea or vomiting. No fever or chills. Objective - Vital Signs Vital signs: Vital Signs Temp 98 F 01/08/20 04:04 Pulse 96 01/08/20 11:47 Resp 18 01/08/20 11:47 BP 103/57 01/08/20 11:47 Pulse Ox 96 01/08/20 11:47 Intake & Output 01/07/20 01/08/20 01/08/20 18:59 06:59 18:59 Intake Total 920 480 Output Total 300 450 Balance 620 -450 480 Weight 151 kg Intake: Oral 920 480 Output: Urine 300 450 Other: Voiding Method Toilet Toilet Toilet Urinal Urinal Urinal # Voids 1 - Exam General: [non toxic], [no distress], [appears at stated age] Derm: [warm], [dry] Head: [atraumatic], [normocephalic], [symmetric] Eyes: [EOMI], [no lid lag], [anicteric sclera] Mouth: [no lip lesion], [mucus membranes moist] Cardiovascular: [S1S2 reg], [no murmur], [positive DP pulse bilateral], Lungs: [CTA bilateral], [no rhonchi, no rales] , [no accessory muscle use] Abdominal: [soft], [ nontender to palpation], [no guarding], [no appreciable organomegaly] Ext: [no gross muscle atrophy], [no edema], [no contractures] Neuro: [no focal neuro deficits] Psych: [Alert], [oriented], [appropriate affect] - Labs CBC & Chem 7: 01/06/20 10:21 01/08/20 04:50 Labs: Abnormal Lab Results - Last 24 Hours (Table) 01/07/20 01/07/20 01/08/20 Range/Units 16:10 20:56 04:50 Sodium 133 L (137-145) mmol/L BUN 23 H (9-20) mg/dL Creatinine 1.46 H (0.66-1.25) mg/dL Glucose 177 H (74-99) mg/dL POC Glucose (mg/dL) 248 H 294 H (75-99) mg/dL 01/08/20 01/08/20 Range/Units 05:56 11:55 Sodium (137-145) mmol/L BUN (9-20) mg/dL Creatinine (0.66-1.25) mg/dL Glucose (74-99) mg/dL POC Glucose (mg/dL) 190 H 226 H (75-99) mg/dL Assessment and Plan Assessment: Non-ST elevation LA with history of CAD Systolic CHF with apical thrombus Acute kidney injury Diabetes mellitus with hyperglycemia Dyslipidemia Initial troponin of 3.210, 20.3, 54.8 with EKG showing sinus bradycardia with T- wave inversions, concerning for ACS. Patient underwent successful stenting of the obtuse marginal branch. Plans: Telemetry monitoring. Continue aspirin. Continue Lipitor. Continue Plavix. Continue metoprolol. Imdur added by Cardiology. Follow cardiology consultation. Echocardiogram shows EF 30%. Hypokinetic wall motion. Apical thrombus seen by cardiology. Plans: Continue beta park. Lisinopril added by cardiology today. Started on Eliquis. Follow cardiology recommendations. Creatinine 1.46. Unknown baseline. Likely to elevate due to contrast. Plans: Repeat BMP tomorrow morning. Avoid nephrotoxins. Jtbrh-tf-[id number] glucose 226. On oral hypoglycemics at home. Plans: Insulin sliding scale. Regular Accu-Cheks. Hypoglycemic precautions. Lipid panel shows triglyceride of 214 and low HDL of 37. Plans: Continue Lipitor. Start Zetia. [Medications adjusted by cardiology. New diagnosis of systolic CHF. Continue monitoring. Likely DC in 1-2 days.]
--- NOTE | 2020-01-08 15:26 | CDI ---
Documentation Clarification Form Date: 01/08/2020 02:53:44 PM From: Agatha Miller RN, CCDS Admit Date: 01/06/2020 11:22:00 AM Patient Name: Alberto Mabry Visit Number: [id number] Discharge Date: ATTENTION: The Clinical Documentation Specialists (CDI) and [facility] Coding Staff appreciate your assistance in clarifying documentation. Please respond to the clarification below the line at the bottom and electronically sign. The CDI & [facility] Coding staff will review the response and follow-up if needed. Please note: Queries are made part of the Legal Health Record. If you have any questions, please contact the author of this message via ITS. Dr. Chadwick Jacobsen Systolic CHF with apical thrombus is documented in your progress note on 01/07 and further specificity of acuity of the CHF is requested. 01/07 attending: "new diagnosis of systolic CHF" History/Risk Factors: Diabetes mellitus type 2, Coronary Artery Disease, Hypertension Clinical Indicators: 69 year old male present to ER on 01/05 with complaints chest pain 01/05 Vital signs: 172/80 53 20 94.5, 01/05 at 10:26; 97.7 01/05 BNP 200, Troponin 3.210 01/06 Echocardiogram results: Left ventricular systolic function is severely impaired with EF between 30% 01/05 chest x-ray: Increased basilar markings may reflect atelectasis however underlying infiltrates not excluded. Treatment: Lopressor 25 mg po bid Zestril 5 mg po bid Imdur 30 mg po daily Zetia 10 mg po daily In your professional opinion, can you please clarify the acuity of CHF if known? Systolic Heart Failure: Acute Chronic Acute on Chronic Unable to Determine Other, please specify (Last Revision: December 2017) chronic systolic chf MTDD
--- NOTE | 2020-01-08 16:21 | CDI ---
Documentation Clarification Form Date: 01/08/2020 03:31:22 PM From: Agatha Miller RN, CCDS Phone: [phone] Admit Date: 01/06/2020 11:22:00 AM Patient Name: Alberto Mabry Visit Number: [id number] Discharge Date: ATTENTION: The Clinical Documentation Specialists (CDI) and [facility] Coding Staff appreciate your assistance in clarifying documentation. Please respond to the clarification below the line at the bottom and electronically sign. The CDI & [facility] Coding staff will review the response and follow-up if needed. Please note: Queries are made part of the Legal Health Record. If you have any questions, please contact the author of this message via ITS. Dr. Sandra Briceno 01/07 Ischemic cardiomyopathy with apical thrombus is documented in your progress note. On 01/05 patient had a Cardiac Catheterization and angioplasty of obtuse marginal branch. Patients Admitting Diagnosis: non-ST elevation myocardial infarction with chronically occluded LAD Post-Operative Diagnosis: Same Procedure performed: Left Heart Catheterization, PTCA of the Obtuse Marginal Branch History/Risk Factors: Coronary Artery Disease, Hypertension, Diabetes mellitus Clinical Indicators: 01/05 patient presented with complaints of chest pain. He was ruled in for a [id number]-BU-[id number] elevation myocardial infarction, underwent cardiac catheterization, and was found to have a total occlusion of the LAD at the site of the prior stenting that appears to be chronic occlusion as well as critical stenosis in the obtuse marginal branch. 01/06 Echocardiogram results: There is moderate concentric left ventricular hypertrophy. Left ventricular systolic function is severely impaired with EF between 30 % The mass is located in the apical portion of the left ventricle. Treatment: Asprin po daily Lipitor 80 mg po daily, Plavix 75 mg po daily, Zetia 10 mg po daily Eliquis 5 po bid Imdur 30 mg po daily, Lopressor 25 mg po bid In order to accurately reflect this patients severity of illness, please clarify if the apical thrombus: -is a complication of surgical procedure -is an expected outcome of the surgical procedure XXXXX -is related to co-morbid condition(s) of (specify conditions) -Other please specify -Unable to determine (Last Revision: October 2019) MTDD
[2020-01-08 16:58] LABS: Glucose,Whole Blood 238 mg/dL (75-99)
[2020-01-08 20:49] LABS: Glucose,Whole Blood 254 mg/dL (75-99)
[2020-01-08 22:19] VITALS: RESP 18
[2020-01-09 02:10] LABS: Glucose,Whole Blood 236 mg/dL (75-99)
[2020-01-09 04:53] VITALS: PULSE 79
[2020-01-09 06:21] LABS: Glucose,Whole Blood 216 mg/dL (75-99)
[2020-01-09] MEDS: INSULIN ASPART (NovoLOG) 100 UNIT/ML VIAL SQ SCH (06:23)
[2020-01-09 06:52] LABS: Calcium 8.8 mg/dL (8.4-10.2); Potassium 4.6 mmol/L (3.5-5.1)
[2020-01-09] MEDS: HEPARIN SODIUM,PORCINE 5,000 UNIT/ML 1 ML VIAL SQ SCH (07:38)
[2020-01-09] MEDS: ATORVASTATIN 80 MG TAB PO SCH (08:30)
[2020-01-09] MEDS: ISOSORBIDE MONONITRATE ER 30 MG TAB.ER.24H PO SCH (08:30)
[2020-01-09] MEDS: APIXABAN 5 MG TAB PO SCH (08:30)
[2020-01-09] MEDS: EZETIMIBE 10 MG TAB PO SCH (08:30)
[2020-01-09] MEDS: LISINOPRIL 5 MG TAB PO SCH (08:31)
[2020-01-09] MEDS: ASPIRIN 81 MG PO SCH (08:31)
[2020-01-09] MEDS: METOPROLOL TARTRATE 25 MG TAB PO SCH (08:31)
[2020-01-09] MEDS: CLOPIDOGREL 75 MG TAB PO SCH (08:31)
[2020-01-09 09:07] VITALS: BP 120/72; TEMP 97.8
--- NOTE | 2020-01-09 10:36 | PN ---
PROGRESS NOTE Mr. Mabry is a 69-year-old male who presented with non ST-segment elevation myocardial infarction, had a chronically occluded LAD with significant disease in the obtuse marginal branch, underwent angioplasty of that vessel, was found to have moderate to severe impaired left ventricular systolic function with apical thrombus. Of note, the patient had a prior myocardial infarction involving the LAD territory in 2002. He is feeling well this morning. His breathing is stable. He denies any chest pain. No dizziness. No palpitation. He continues to be on aspirin 81 mg daily, Eliquis 5 mg twice a day, Lipitor 80 mg daily Plavix, isosorbide mononitrate 30 mg daily, lisinopril 5 mg twice a day and metoprolol tartrate 25 mg twice a day. PHYSICAL EXAMINATION: Blood pressure 120/70 with a heart rate in the 70s. LUNGS: Clear, regular rate and rhythm, S1, S2. No S3. No rub. ABDOMEN: Soft, obese, nontender. EXTREMITIES: No edema. LAB DATA: Revealed BUN and creatinine 21.4, potassium 4.6. IMPRESSION: 1. Status post non ST-segment elevation myocardial infarction with angioplasty of the obtuse marginal branch. 2. Chronically occluded LAD. 3. Moderate to severe cardiomyopathy with apical thrombus. 4. Hypertension. 5. Hyperlipidemia. 6. Prior history of smoking. RECOMMENDATION: From the cardiac standpoint, he should be able to be discharged home today. I will stop his aspirin. Continue Plavix and Eliquis. He will be followed as an outpatient regarding his apical thrombus and further recommendation will be made. MMODL / IJN: [id number] /
--- NOTE | 2020-01-09 11:10 | P.DS ---
Providers Date of admission: 01/06/20 11:22 Expected date of discharge: 01/09/20 Attending physician: Chadwick Jacobsen MD Consults: 01/06/20 11:22 Consult Physician Urgent Consulting Provider: Arpita Phelan Consult Reason/Comments: Non-STEMI Do you want consulting provider notified?: Yes 01/06/20 14:12 Consult Physician Routine Consulting Provider: Arpita Phelan Consult Reason/Comments: Post Interventional patient Do you want consulting provider notified?: Already Contacted Primary care physician: Physician Nonstaff Hospital Course: 69-year-old male with PMH of type 2 diabetes mellitus, CAD post 2 stents, recently quit smoking after 50 years pack a day presents the ED for chest pain. Patient reports that this morning he was sitting drinking a couple coffee when he experienced a sudden onset of chest pain. Pain was described as squeezing in nature and was 10 out of 10. Patient reports the pain radiated to his bilateral arms and the right side of his jaw. He also felt cold and clammy during that time along with a dry cough. These symptoms reminded him of his prior OR which prompted him to come to the ED. He denies any headache, lower extremity edema, nausea or vomiting, fever or chills, shortness of breath, palpitations, changes in urination or bowel habits. No changes in appetite or weight. In the ED, his vital signs were relatively stable except for bradycardia with heart rate of 53. CBC showed hemoglobin of 18. Coagulation panel showed PTT of 18.4. CMP showed sodium of 135, bicarbonate of 18, BUN 26, creatinine 1.32, glucose 282. Troponin was 3.21, EKG showing sinus bradycardia with T-wave inversions. BNP was 200, chest x-ray showing basilar markings. Patient was taken to the [facility] from the ED which showed critical stenosis of the obtuse marginal branch, chronically occluded mid LAD at the site of prior stenting, moderate disease of the RCA. Patient underwent successful angioplasty of the obtuse marginal branch with reduction of stenosis from 99% to less than 10%. Patient is admitted for chest pain, non-ST elevation OR and cardiology consultation. Initial troponin of 3.210 with EKG showing sinus bradycardia with T-wave inversions, concerning for ACS. Patient underwent successful stenting of the obtuse marginal branch. Echocardiogram shows EF 30%. Hypokinetic wall motion. Apical thrombus seen by cardiology. Patient was started on aspirin, Lipitor and Plavix along with metoprolol. Imdur was added by cardiology. Patient was also started on lisinopril due to his new diagnosis of CHF. He was started on Eliquis for apical thrombus. Patient was seen and examined. No acute events overnight. Patient denies any chest pain, shortness breath or palpitations. No nausea or vomiting. No fever or chills. Cleared by cardiology for discharge. General: [non toxic], [no distress], [appears at stated age] Derm: [warm], [dry] Head: [atraumatic], [normocephalic], [symmetric] Eyes: [EOMI], [no lid lag], [anicteric sclera] Mouth: [no lip lesion], [mucus membranes moist] Cardiovascular: [S1S2 reg], [no murmur], [positive DP pulse bilateral], Lungs: [CTA bilateral], [no rhonchi, no rales] , [no accessory muscle use] Abdominal: [soft], [ nontender to palpation], [no guarding], [no appreciable organomegaly] Ext: [no gross muscle atrophy], [no edema], [no contractures] Neuro: [no focal neuro deficits] Psych: [Alert], [oriented], [appropriate affect] Non-ST elevation OR with history of CAD Systolic CHF with apical thrombus Acute kidney injury Diabetes mellitus with hyperglycemia Dyslipidemia Initial troponin of 3.210, 20.3, 54.8 with EKG showing sinus bradycardia with T- wave inversions, concerning for ACS. Patient underwent successful stenting of the obtuse marginal branch. Plans: Telemetry monitoring. Continue aspirin. Continue Lipitor. Continue Plavix. Continue metoprolol. Imdur added by Cardiology. Follow cardiology consultation. Echocardiogram shows EF 30%. Hypokinetic wall motion. Apical thrombus seen by cardiology. Plans: Continue beta park. Lisinopril added by cardiology today. Started on Eliquis. Follow cardiology recommendations. Creatinine 1.42, improving. Unknown baseline. Likely to elevate due to contrast. Plans: Repeat BMP tomorrow morning. Avoid nephrotoxins. Kutvy-hm-ujap glucose 216. On oral hypoglycemics at home. Plans: Insulin sliding scale. Regular Accu-Cheks. Hypoglycemic precautions. Lipid panel shows triglyceride of 214 and low HDL of 37. Plans: Continue Lipitor. Start Zetia. Pertinent Studies: Chest x-ray, echocardiogram Procedures: Coronary angiogram Patient Condition at Discharge: Stable Plan - Discharge Summary Discharge Rx Participant: No New Discharge Prescriptions: New Apixaban [Eliquis] 5 mg PO BID #180 tab Isosorbide Mononitrate ER [Imdur] 30 mg PO DAILY #90 tab.er.24h Nitroglycerin Sl Tabs [Nitrostat] 0.4 mg SUBLINGUAL Q5M PRN #25 tab PRN Reason: Chest Pain Clopidogrel [Plavix] 75 mg PO DAILY #90 tab Metoprolol Tartrate [Lopressor] 25 mg PO BID #60 tab Lisinopril [Zestril] 5 mg PO BID #60 tab Continue Acarbose 100 mg PO AC-TID Canagliflozin [Invokana] 100 mg PO DAILY glipiZIDE [Glucotrol] 20 mg PO AC-BID Ezetimibe [Zetia] 10 mg PO DAILY Enalapril [Vasotec] 10 mg PO BID Atorvastatin [Lipitor] 80 mg PO HS Discontinued Metoprolol Tartrate [Lopressor] 50 mg PO BID Discharge Medication List Acarbose 100 mg PO AC-TID 01/06/20 [History] Atorvastatin [Lipitor] 80 mg PO HS 01/06/20 [History] Canagliflozin [Invokana] 100 mg PO DAILY 01/06/20 [History] Enalapril [Vasotec] 10 mg PO BID 01/06/20 [History] Ezetimibe [Zetia] 10 mg PO DAILY 01/06/20 [History] glipiZIDE [Glucotrol] 20 mg PO AC-BID 01/06/20 [History] Apixaban [Eliquis] 5 mg PO BID #180 tab 01/09/20 [Rx] Clopidogrel [Plavix] 75 mg PO DAILY #90 tab 01/09/20 [Rx] Isosorbide Mononitrate ER [Imdur] 30 mg PO DAILY #90 tab.er.24h 01/09/20 [Rx] Lisinopril [Zestril] 5 mg PO BID #60 tab 01/09/20 [Rx] Metoprolol Tartrate [Lopressor] 25 mg PO BID #60 tab 01/09/20 [Rx] Nitroglycerin Sl Tabs [Nitrostat] 0.4 mg SUBLINGUAL Q5M PRN #25 tab 01/09/20 [Rx] Follow up Appointment(s)/Referral(s): Sandra Briceno MD [STAFF PHYSICIAN] - 1 Week (Office will call with a follow up appointment. Either in person or via telephone.) Rehab Rashawn MIRANDA,Cardiac [NON-STAFF] - (After discharge, you will follow-up with your geospatial analyst. Once you have obtained a prescription for cardiac rehab, please call [phone] to set up an evaluation.) Nonstaff,Physician [Primary Care Provider] - 1-2 days (Please follow up with your primary provider within one week of being discharged from the hospital. Many offices are doing phone follow up appointments at this time. ) Patient Instructions/Handouts: *Surgery [facility] - After Heart Catheterization - [facility]quet Captain Instructions, Heart Healthy Diet (DC) Activity/Diet/Wound Care/Special Instructions: CARDIAC CATH 1. Watch for any excessive bruising, active bleeding, a firm knot forming under your skin, extreme tenderness and signs of infection (redness, swelling, fever). 2. Shower daily, do not soak puncture in a tub bath, jacuzzi, pool, kulkarni etc. for 1 week. This is to prevent risk of infection. 3. Drink plenty of fluids the day of and day after your procedure to flush contrast dye out of your kidneys. 4. Take all medications as directed. Never stop any new medication without your physicians OK. 5. No driving for 2 days after procedure. 6. 10- pound weight lifting restriction for 1 week. 7. Low sodium/low fat diet. 8. Activity limited until follow up appointment with your geospatial analyst. In case of any problems, please call [facility] @ [phone]. Follow-up PCP within 3 days of discharge. Follow-up with cardiology within 1 week of discharge. Take all medications as advised. Come back to the ED for worsening chest, shortness of breath, palpitations or dizziness. Discharge Disposition: HOME SELF-CARE
[2020-01-09 11:17] LABS: Glucose,Whole Blood 217 mg/dL (75-99)
== END 2020-01-09 12:09 | disposition home or self-care (01) | DRG 251 ==
LOC: EC 09:51 → 3SCARD 11:22
PROVIDERS: ADMIT Family Medicine; ATTEND Family Medicine
PROC: 02703ZZ Dilation of Coronary Artery, One Artery, Percutaneous Approach (ICD-10-PCS; principal; 2020-01-06 12:15)
PROC: B2111ZZ Fluoroscopy of Multiple Coronary Arteries using Low Osmolar Contrast (ICD-10-PCS; principal; 2020-01-06 12:15)
DX: I21.4 Non-ST elevation (NSTEMI) myocardial infarction (principal); Z68.41 Body mass index [BMI] 40.0-44.9, adult; N17.9 Acute kidney failure, unspecified; I50.22 Chronic systolic (congestive) heart failure; E11.65 Type 2 diabetes mellitus with hyperglycemia; F17.200 Nicotine dependence, unspecified, uncomplicated; E87.5 Hyperkalemia; E78.00 Pure hypercholesterolemia, unspecified; E66.01 Morbid (severe) obesity due to excess calories; I11.0 Hypertensive heart disease with heart failure; I25.82 Chronic total occlusion of coronary artery; I25.5 Ischemic cardiomyopathy; I25.10 Atherosclerotic heart disease of native coronary artery without angina pectoris; I51.3 Intracardiac thrombosis, not elsewhere classified; E78.5 Hyperlipidemia, unspecified; Z88.0 Allergy status to penicillin; Z95.5 Presence of coronary angioplasty implant and graft; Z82.49 Family history of ischemic heart disease and other diseases of the circulatory system; Z79.899 Other long term (current) drug therapy; Z79.82 Long term (current) use of aspirin; Z79.02 Long term (current) use of antithrombotics/antiplatelets; Z79.01 Long term (current) use of anticoagulants; I25.2 Old myocardial infarction
CPT/HCPCS: 36415; 71046; 80048; 80053; 80061; 83735; 83880; 84132; 84484; 85025; 85347; 85610; 85730; 93005; 93306; 93454; 96365; 96368; 96376; 99291

== ENCOUNTER 2021-04-27 06:17 | Day surgery (SDC) | payer MEDICARE ==
[2021-04-23 11:26] VITALS: BMI 44.0
[~2021-04-27 06:17] MED LIST: SODIUM CHLORIDE 0.9% 1,000 ML IV SCH
[2021-04-27 07:04] VITALS: TEMP 97.5
[2021-04-27 07:05] LABS: Glucose,Whole Blood 162 mg/dL (75-99)
[2021-04-27] MEDS ORDERED: PROPOFOL 10 MG/ML 20 ML VIAL IV ONE (07:15)
[2021-04-27] MEDS ORDERED: NITROGLYCERIN SL TABS 0.4 MG TAB SUBLINGUAL PRN (07:44)
[2021-04-27] MEDS ORDERED: SODIUM CHLORIDE 0.9% 1,000 ML IV SCH (07:45)
[2021-04-27 08:16] VITALS: RESP 16
--- NOTE | 2021-04-27 08:55 | CE ---
CARDIAC ELECTROPHYSIOLOGY REPORT CARDIOVERSION PROCEDURE NOTE: INDICATION: Atrial fibrillation. PROCEDURE: After explaining the procedure to the patient, its risks and complications, his blood pressure, heart rate, O2 saturation was monitored. Transesophageal echocardiogram was performed. After obtaining sedated state, a synchronized biphasic cardioversion using 200 joules, subsequently 300 joules was successful in restoring normal sinus rhythm. There was no immediate complication. JEFF / JUSTINON: [id number] /
--- NOTE | 2021-04-27 08:55 | ECHOT ---
TRANSESOPHAGEAL ECHOCARDIOGRAM INDICATION: Evaluation of left atrial appendage. PROCEDURE DETAILS: After explaining the procedure to the patient, its risks and the complications, his blood pressure, heart rate, O2 saturation was monitored. The throat was sprayed with Cetacaine. He received sedation per Anesthesia Department. The probe was introduced into the esophagus without difficulty. Images were obtained. Following that, the balloon was removed. There was no immediate complication. FINDINGS: Left atrial size is dilated. Left atrial appendage is normal. Left ventricular size is normal. There is evidence of anteroapical and apical septal severe hypokinesis to akinesis. Estimated ejection fraction 45%. The aortic valve, mitral and tricuspid valve are normal. Descending and thoracic aorta appears to be normal. Contrast bubble study revealed no shunting across the interatrial septum. There was no pericardial effusion. Doppler pulse wave and color Doppler obtained and revealed mild mitral and tricuspid regurgitation. There was no evidence of shunting by color Doppler study. CONCLUSION: 1. Dilated left atrium with normal appearance of left atrial appendage. 2. Mildly impaired left ventricular systolic function with segmental wall motion abnormality. 3. Mild mitral and tricuspid regurgitation. 4. Normal appearance of descending thoracic aorta. 5. No shunting across the interatrial septum. MMODL / IJN: [id number] /
[2021-04-27] MEDS ORDERED: METOPROLOL TARTRATE 25 MG TAB PO SCH (09:00)
[2021-04-27] MEDS ORDERED: ISOSORBIDE MONONITRATE ER 30 MG TAB.ER.24H PO SCH (09:00)
[2021-04-27] MEDS ORDERED: NON FORMULARY DRUG (Canagliflozin [Invokana] 100 MG Tablet) PO SCH (09:00)
[2021-04-27] MEDS ORDERED: NON FORMULARY DRUG (Omeprazole [Omeprazole] 20 MG Capsule.Dr) PO SCH (09:00)
[2021-04-27] MEDS ORDERED: NON FORMULARY DRUG (Enalapril 10 MG Tab) PO SCH (09:00)
[2021-04-27] MEDS ORDERED: EZETIMIBE 10 MG TAB PO SCH (09:00)
[2021-04-27] MEDS ORDERED: CLOPIDOGREL 75 MG TAB PO SCH (09:00)
[2021-04-27] MEDS ORDERED: APIXABAN 5 MG TAB PO SCH (09:00)
[2021-04-27 10:09] VITALS: BP 99/60; PULSE 52
[2021-04-27] MEDS ORDERED: glipiZIDE 10 MG TAB PO SCH (17:30)
[2021-04-27] MEDS ORDERED: NON FORMULARY DRUG (Sitagliptin Phos/Metformin Hcl [Janumet 50-1,000 Mg Tablet] 1 EACH Tab PO SCH (17:30)
[2021-04-27] MEDS ORDERED: ATORVASTATIN 80 MG TAB PO SCH (21:00)
== END 2021-04-27 09:57 | disposition home or self-care (01) ==
LOC: CATHCVL 06:17
PROVIDERS: ATTEND Internal Medicine Interventional Cardiology
DX: I08.1 Rheumatic disorders of both mitral and tricuspid valves (principal); I48.11 Longstanding persistent atrial fibrillation; I25.5 Ischemic cardiomyopathy; I25.10 Atherosclerotic heart disease of native coronary artery without angina pectoris; I10 Essential (primary) hypertension; Z95.5 Presence of coronary angioplasty implant and graft; E78.2 Mixed hyperlipidemia; Z79.899 Other long term (current) drug therapy; E11.9 Type 2 diabetes mellitus without complications; Z72.0 Tobacco use; Z82.49 Family history of ischemic heart disease and other diseases of the circulatory system; Z79.02 Long term (current) use of antithrombotics/antiplatelets; Z79.82 Long term (current) use of aspirin; Z79.01 Long term (current) use of anticoagulants; Z79.84 Long term (current) use of oral hypoglycemic drugs
CPT/HCPCS: 93312; 93320; 93325; 92960; J2704

== ENCOUNTER → 2023-01-12 | Outpatient (CLI) | payer MEDICARE ==
--- NOTE | 2023-01-12 11:21 | XR ---
EXAMINATION TYPE: XR chest 2V DATE OF EXAM: 01/12/2023 COMPARISON: 01/06/2020 TECHNIQUE: PA and lateral views submitted. HISTORY: Shortness of breath FINDINGS: The lungs are clear and there is no pneumothorax, pleural effusion, or focal pneumonia. Heart size is enlarged and there is a diffuse interstitial pattern.. Osseous structures demonstrate hypertrophic and degenerative changes of the spine. IMPRESSION: 1. 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 2. Cardiomegaly.
== END | disposition home or self-care (01) ==
LOC: RADXRMAIN 11:02
PROVIDERS: ATTEND Nurse Practitioner Adult Health
DX: J84.89 Other specified interstitial pulmonary diseases (principal); J18.9 Pneumonia, unspecified organism; I51.7 Cardiomegaly
CPT/HCPCS: 71046